=== PATIENT | male | born 1995 | race American Indian/Alaskan Native ===

== ENCOUNTER 2018-10-04 06:01 | Emergency (ER) | payer SELFPAY ==
[2018-10-04 06:14] VITALS: BP 141/79
--- NOTE | 2018-10-04 08:02 | Emergency Department Report ---
ED Rash HPI - HPI Chief Complaint: Skin Rash Stated Complaint: POSS INSECT BITE Time Seen by Provider: 10/04/18 07:14 Duration: 1 Day Location: Upper Extremities, Lower Extremities Suspected Cause: Insect Rash Symptoms: Yes Itching, No Facial Swelling, No Tongue/Oral Swelling, No Breathing Difficulties, No Choking Sensation, No Wheezing/Dyspnea, No Peeling, No Blistering, No Fever, No Lightheaded, No Malaise, No Myalgias Other History: This is a 23-year-old -[place] female presents to the emergency room with a generalized pruritic rash since yesterday. Patient states he stayed in an Air [place] 4 days ago and noticed rash yesterday. He is concerned for possible bed bug bites. Patient reports rash is worse at night time. He denies difficulty swallowing or drooling. ED Review of Systems ROS: Stated complaint: POSS INSECT BITE Other details as noted in HPI Constitutional: denies: chills, fever Respiratory: denies: cough, shortness of breath, wheezing Cardiovascular: denies: chest pain, palpitations Gastrointestinal: denies: abdominal pain, nausea, diarrhea Skin: rash. denies: lesions Neurological: denies: headache, weakness, paresthesias Psychiatric: denies: anxiety, depression ED Past Medical Hx - Past Medical History Previous Medical History?: No - Surgical History Past Surgical History?: No - Social History Smoking Status: Current Every Day Smoker Substance Use Type: None - Medications Home Medications: Home Medications Medication Instructions Recorded Confirmed Last Taken Type Pramoxine HCl/Calamine [Caladryl 177 ml TP QID PRN #1 bottle 10/04/18 Unknown Rx 1%-8% Lotion] hydrOXYzine PAMOATE [Vistaril] 25 mg PO Q6HR PRN #30 capsule 10/04/18 Unknown Rx methylPREDNISolone [Medrol 4MG 4 mg PO DAILY #1 tab.ds.pk 10/04/18 Unknown Rx DOSEPAK (21 tabs)] Rash Exam - Exam General: Vital signs noted. No distress. Alert and acting appropriately. HEENT: No Periorbital Edema, No Conjuctival Injection, No Chemosis, No Perioral Edema, No Tongue Edema, No Uvular Edema, No Compromised Airway, No Drooling Lungs: Yes Good Air Exchange (Normal Breath Sounds), No Wheezes, No Ronchi, No Stridor, No Cough, No Labored Respirations, No Retractions, No Use of Accessory Muscles, No Other Abnormal Lung Sounds Heart: Yes Regular, No Murmur Skin: Yes Maculopapular Rash (blanchable maculopapular rash to bilateral upper extremity and lower extremities, no surrounding cellulitis), No Urticarial Rash, No Morbilliform rash, No Bulla(e), No Excoriations, No Weeping, No Tenderness, No Erythema, No Edema, No Encrustations ED Course Vital Signs 10/04/18 06:06 Temperature 97.8 F Pulse Rate 83 Respiratory 18 Rate Blood Pressure 141/79 O2 Sat by Pulse 99 Oximetry ED Medical Decision Making - Medical Decision Making Patient was examined by me. Vitals are normal and patient is in no acute distress. There is erythematous maculopapular rash to bilateral upper extremities and lower extremities which appear to be contact dermatitis. Given dexamethasone and Reglan while in the ER. He will be treated for contact dermatitis and exposure to. Start steroids, Vistaril, and caladryl. Educated on care of bed bug cleaning. Plan discussed with patient to discharge home and treat outpatient. He agrees with ER plan. Patient discharged home in stable condition. Follow up with PCP in 2-3 days. Critical care attestation.: If time is entered above; I have spent that time in minutes in the direct care of this critically ill patient, excluding procedure time. ED Disposition Clinical Impression: Pruritic rash Contact dermatitis Qualifiers: Contact dermatitis type: allergic Contact dermatitis trigger: non-food plants Qualified Code(s): L23.7 - Allergic contact dermatitis due to plants, except food Bed bug bite Qualifiers: Encounter type: initial encounter Qualified Code(s): W57.XXXA - Bitten or stung by nonvenomous insect and other nonvenomous arthropods, initial encounter Disposition: -01 TO HOME OR SELFCARE Is pt being admited?: No Does the pt Need Aspirin: No Condition: Stable Instructions: Insect Bite or Sting (ED), Contact Dermatitis (ED) Additional Instructions: Complete full course of steroids as prescribed. Take Vistaril every 6 hours as needed for itching. If symptoms are not improving over the neck is 4872 hours follow-up with her primary care doctor. I have provided her a referral list of dermatologists or warm in worker to follow up with his symptoms are not improving as discussed. Prescriptions: Pramoxine HCl/Calamine [Caladryl 1%-8% Lotion] 177 ml TP QID PRN #1 bottle PRN Reason: Itching methylPREDNISolone [Medrol 4MG DOSEPAK (21 tabs)] 4 mg PO DAILY #1 tab.ds.pk hydrOXYzine PAMOATE [Vistaril] 25 mg PO Q6HR PRN #30 capsule PRN Reason: Itching Referrals: [facility] [Provider Group] - 3-5 Days [facility] [Provider Group] - 3-5 Days [facility] [Outside] - 3-5 Days [facility] [Outside] - 3-5 Days Forms: Work/School Release Form(ED) Time of Disposition: 08:07
[2018-10-04] MEDS ORDERED: REGLAN PO ONE (08:06)
[2018-10-04] MEDS ORDERED: DECADRON IM ONE (08:06)
== END 2018-10-04 08:24 | disposition home or self-care (01) ==
LOC: ED 06:01
DX: L23.7 Allergic contact dermatitis due to plants, except food (principal); F17.200 Nicotine dependence, unspecified, uncomplicated; Z79.899 Other long term (current) drug therapy; W57.XXXA Bitten or stung by nonvenomous insect and other nonvenomous arthropods, initial encounter; Y93.89 Activity, other specified; Y92.89 Other specified places as the place of occurrence of the external cause; Y99.8 Other external cause status
CPT/HCPCS: 96372; 99282; J1100